=== PATIENT | male | born 1965 | race Caucasian/White ===

== ENCOUNTER 2017-06-28 07:35 | Day surgery (SDC) | payer BC ==
[2017-06-28] MEDS ORDERED: NS 500 ML IV 500 ML IV ONE (08:27)
[2017-06-28] MEDS ORDERED: TETRACAINE 0.5% OPHTH 1 DOSE AFFEYE ONE ×3 (08:45→10:42)
[2017-06-28] MEDS ORDERED: VIGAMOX 0.5% OPHTH 1 DOSE AFFEYE ONE ×4 (08:50→10:46)
[2017-06-28] MEDS ORDERED: PROLENSA OPHTH 1 DOSE AFFEYE ONE (09:01)
[2017-06-28] MEDS ORDERED: ALPHAGAN-P OPHTH 1 DOSE AFFEYE ONE (09:02)
[2017-06-28] MEDS ORDERED: CYCLOGYL 1% OPHTH 1 DOSE OP ONE ×3 (09:03→09:05)
[2017-06-28] MEDS ORDERED: AK-DILATE 2.5% OPHTH 1 DOSE OP ONE ×3 (09:03→09:05)
[2017-06-28] MEDS ORDERED: MYDRIACIL OPHTH 1 DOSE AFFEYE ONE ×3 (09:03→09:05)
[2017-06-28] MEDS ORDERED: DIPRIVAN VIAL ONE (10:19)
[2017-06-28] MEDS ORDERED: BETADINE OPHTH SOLN 5% EACHEYE ONE (10:35)
[2017-06-28] MEDS ORDERED: BSS OPHTH (PLAIN) 500 ML with VANCOMYCIN HCL 500 MG VIAL 25 MG, ADRENALINE CHL INJ 1 MG IR ONE ×3 (10:42)
[2017-06-28] MEDS ORDERED: DUOVISC IO ONE (10:42)
[2017-06-28] MEDS ORDERED: XYLOCAINE-MPF 1% IJ ONE (10:42)
[2017-06-28] MEDS ORDERED: ADRENALINE CHL INJ IJ ONE (10:42)
[2017-06-28 11:14] VITALS: BP 140/90
== END 2017-06-28 11:16 | disposition home or self-care (01) ==
LOC: SURG1 07:35
PROVIDERS: ATTEND Ophthalmology
PROC: 08RJ3JZ Replacement of Right Lens with Synthetic Substitute, Percutaneous Approach (ICD-10-PCS; principal; 2017-06-28 10:45)
PROC: 08DJ3ZZ Extraction of Right Lens, Percutaneous Approach (ICD-10-PCS; principal; 2017-06-28 10:45)
DX: H25.11 Age-related nuclear cataract, right eye (principal); H25.041 Posterior subcapsular polar age-related cataract, right eye
CPT/HCPCS: A4217; J0170; J3370; J3490